=== PATIENT | male | born 1935 | race Caucasian/White ===

== ENCOUNTER 2022-09-23 16:17 | Inpatient (IN) ==
[2022-09-23] MEDS ORDERED: SODIUM CHLORIDE 0.9% 1,000 ML IV STA (17:13)
[2022-09-23 17:58] LABS: Basophils # 0.1 10*3/uL (0.0-0.2); Basophils % 0.8 % (0.0-0.8); Eosinophils # 0.1 10*3/uL (0.0-0.87); Hematocrit 23.2 VOL% (42.0-52.0); Hemoglobin 7.2 GM/DL (14.0-18.0); Immature Granulocytes % 0.3 %; Immature Granulocytes Absolute 0.02 #; Lymphocytes # 0.6 10*3/uL (1.4-4.0); Lymphocytes % 8.3 % (21.2-54.2); Mean Corpuscular Volume 98.7 FL (87-102); Mean Platelet Volume 10.9 FL (9.6-12.0); Monocytes # 0.6 10*3/uL (0.11-0.8); Monocytes % 8.5 % (1.7-12.7); Neutrophils % 80.1 % (38.7-73.9); Platelet Count 256 T/CUMM (130-400); Red Blood Count 2.35 MC/CUMM (3.8-5.5); Red Cell Distribution Width 13.9 % (9.3-17.3); White Blood Count 6.6 T/CUMM (4-12)
[2022-09-23 18:06] LABS: PT Patient Result 11.4 SECS (10.1-12.1)
[2022-09-23 18:18] LABS: Alanine Aminotransferase 71 U/L (16-61); Albumin 2.5 G/DL (3.4-5.0); Alkaline Phosphatase 100 U/L (45-117); Aspartate Amino Transferase 50 U/L (0-37); Bilirubin,Total < 0.39 MG/DL (0.20-1.00); Blood Urea Nitrogen 56 MG/DL (7-18); Calcium 8.9 MG/DL (8.5-10.1); Carbon Dioxide 26 MMOL/L (21-32); Chloride 103 MMOL/L (98-107); Osmolality,Calculated 315.7 MOS/KG (273-304); Potassium 3.8 MMOL/L (3.5-5.1); Sodium 138 MMOL/L (136-145); Total Protein 5.9 G/DL (6.4-8.2)
[2022-09-23 18:24] LABS: Glucose 552 MG/DL (74-106)
[2022-09-23] MEDS ORDERED: INSULIN REGULAR 100 UNIT/ML IV STA ×2 (18:28→19:38)
[2022-09-23 18:52] LABS: Bacteria,Urine Occasional /HPF (Few); Hyaline Casts,Urine 4 /LPF (0-3); Mucus,Urine Occasional /LPF (Occasional); RBC,Urine 1 /HPF (0-4); Urine Appearance Clear (Clear); Urine Color Yellow (Yellow)
[2022-09-23 18:53] LABS: Bilirubin,Urine Negative (Negative); Blood, Urine Negative (Negative); Glucose,Urine (UA) 500 mg/dL (Negative); Ketones,Urine Negative (Negative); Nitrite,Urine Negative (Negative); Protein,Urine Negative (Negative); Urine Urobilinogen 0.2 eU/dL (<2.0); Urine pH 5.5 (4.5-8.0)
[2022-09-23] MEDS ORDERED: ONDANSETRON 4 MG/2 ML VIAL IV PRN (19:32)
[2022-09-23] MEDS ORDERED: GLUCAGON 1 MG VIAL IM PRN ×2 (19:32)
[2022-09-23] MEDS ORDERED: DEXTROSE 10% 250 ML BAG IV PRN (19:32)
[2022-09-23] MEDS ORDERED: DEXTROSE 50% 25 GM/50 ML VIAL IV PRN (19:32)
[2022-09-23] MEDS ORDERED: hydrALAZINE 20 MG/1 ML VIAL IV PRN (19:32)
[2022-09-23] MEDS ORDERED: SODIUM CHLORIDE 0.9% 1,000 ML IV PRN (19:37)
[2022-09-23] MEDS ORDERED: cefTRIAXone 1,000 MG in SODIUM CHLORIDE 0.9% 100 ML IV SCH (20:00)
[2022-09-23 20:10] LABS: % Iron Saturation 12.3 % (18-50)
[2022-09-23] MEDS: SODIUM CHLORIDE 0.9% 1,000 ML IV SCH (20:32)
[2022-09-23] MEDS ORDERED: INSULIN GLARGINE 100 UNIT/ML SUBCUT ONE (21:00)
[2022-09-23] MEDS ORDERED: AZITHROMYCIN INJ 500 MG in SODIUM CHLORIDE 0.9% 250 ML IV SCH (21:00)
[2022-09-23] MEDS ORDERED: APIXABAN 2.5 MG TABLET PO SCH (21:00)
[2022-09-23 21:19] LABS: Hematocrit 22.1 VOL% (42.0-52.0); Hemoglobin 6.8 GM/DL (14.0-18.0)
[2022-09-23] MEDS: PANTOPRAZOLE 40 MG VIAL IV SCH (22:02)
[2022-09-23] MEDS: ASCORBIC ACID 500 MG TABLET PO SCH (22:30)
[2022-09-23] MEDS: INSULIN REGULAR 100 UNIT/ML SUBCUT SCH (23:23)
[2022-09-24 02:39] LABS: Basophils % 0.4 % (0.0-0.8); Eosinophils # 0.2 10*3/uL (0.0-0.87); Eosinophils % 3.2 % (0.00-10.9); Hematocrit 21.6 VOL% (42.0-52.0); Hemoglobin 6.7 GM/DL (14.0-18.0); Immature Granulocytes % 0.3 %; Immature Granulocytes Absolute 0.02 #; Lymphocytes # 0.7 10*3/uL (1.4-4.0); Lymphocytes % 10.2 % (21.2-54.2); Mean Corpuscular Volume 98.2 FL (87-102); Mean Platelet Volume 10.8 FL (9.6-12.0); Monocytes # 0.5 10*3/uL (0.11-0.8); Monocytes % 7.5 % (1.7-12.7); Neutrophils % 78.4 % (38.7-73.9); Platelet Count 236 T/CUMM (130-400); Red Cell Distribution Width 13.8 % (9.3-17.3); White Blood Count 7.2 T/CUMM (4-12)
[2022-09-24 03:10] LABS: Alanine Aminotransferase 62 U/L (16-61); Albumin 2.2 G/DL (3.4-5.0); Alkaline Phosphatase 87 U/L (45-117); Aspartate Amino Transferase 43 U/L (0-37); Bilirubin,Indirect 0.3 MG/DL (0.0-1.0); Bilirubin,Total < 0.39 MG/DL (0.20-1.00); Ferritin 237.8 ng/mL (26-388); Total Protein 5.3 G/DL (6.4-8.2)
[2022-09-24 03:21] LABS: Calcium 8.5 MG/DL (8.5-10.1); Potassium 3.5 MMOL/L (3.5-5.1); Risk Ratio 2.51; Thyroid Stimulating Hormone 0.975 uIU/ml (0.358-3.74); VLDL Cholesterol 11.6 MG/DL
[2022-09-24 07:33] LABS: Hemoglobin 7.7 GM/DL (14.0-18.0)
[2022-09-24] MEDS: PANTOPRAZOLE 40 MG VIAL IV SCH ×2 (09:28→22:19)
[2022-09-24] MEDS: ASCORBIC ACID 500 MG TABLET PO SCH ×2 (09:43→22:18)
[2022-09-24] MEDS: CHOLECALCIFEROL 1,000 UNIT TABLET PO SCH (09:43)
[2022-09-24] MEDS: ZINC GLUCONATE 50 MG TABLET PO SCH (09:43)
[2022-09-24] MEDS: INSULIN REGULAR 100 UNIT/ML SUBCUT SCH ×4 (09:45→22:19)
[2022-09-24] MEDS: SODIUM CHLORIDE 0.9% 1,000 ML IV SCH ×2 (13:47→22:19)
[2022-09-24] MEDS: MENTHOL/ZINC OXIDE OINT 71 GM JAR TOP SCH (22:19)
[2022-09-25 04:45] LABS: Basophils % 0.4 % (0.0-0.8); Eosinophils # 0.3 10*3/uL (0.0-0.87); Eosinophils % 3.6 % (0.00-10.9); Hematocrit 24.6 VOL% (42.0-52.0); Hemoglobin 7.6 GM/DL (14.0-18.0); Immature Granulocytes Absolute 0.07 #; Lymphocytes # 0.7 10*3/uL (1.4-4.0); Lymphocytes % 9.4 % (21.2-54.2); Mean Corpuscular HGB Conc 30.9 GM/DL (32-36); Mean Corpuscular Volume 94.3 FL (87-102); Mean Platelet Volume 10.5 FL (9.6-12.0); Monocytes # 0.5 10*3/uL (0.11-0.8); Monocytes % 7.3 % (1.7-12.7); Neutrophils % 78.3 % (38.7-73.9); Platelet Count 229 T/CUMM (130-400); Red Blood Count 2.61 MC/CUMM (3.8-5.5); Red Cell Distribution Width 18.5 % (9.3-17.3); White Blood Count 7.2 T/CUMM (4-12)
[2022-09-25 05:12] LABS: Alanine Aminotransferase 61 U/L (16-61); Albumin 2.1 G/DL (3.4-5.0); Alkaline Phosphatase 82 U/L (45-117); Aspartate Amino Transferase 45 U/L (0-37); Bilirubin,Total < 0.39 MG/DL (0.20-1.00); Blood Urea Nitrogen 49 MG/DL (7-18); Calcium 8.7 MG/DL (8.5-10.1); Carbon Dioxide 26 MMOL/L (21-32); Chloride 113 MMOL/L (98-107); Glucose 150 MG/DL (74-106); Osmolality,Calculated 305.6 MOS/KG (273-304); Potassium 3.6 MMOL/L (3.5-5.1); Sodium 146 MMOL/L (136-145); Total Protein 5.1 G/DL (6.4-8.2)
[2022-09-25] MEDS: INSULIN REGULAR 100 UNIT/ML SUBCUT SCH ×2 (07:17→13:01)
[2022-09-25] MEDS: PANTOPRAZOLE 40 MG VIAL IV SCH (09:31)
[2022-09-25] MEDS: ZINC GLUCONATE 50 MG TABLET PO SCH (09:44)
[2022-09-25] MEDS: CHOLECALCIFEROL 1,000 UNIT TABLET PO SCH (09:44)
[2022-09-25] MEDS: MENTHOL/ZINC OXIDE OINT 71 GM JAR TOP SCH (09:44)
[2022-09-25] MEDS: ASCORBIC ACID 500 MG TABLET PO SCH (09:44)
[2022-09-25 12:41] VITALS: BP 164/77
[2022-09-25] MEDS: SODIUM CHLORIDE 0.9% 1,000 ML IV SCH (14:23)
== END 2022-09-25 14:33 | disposition home or self-care (01) | DRG 682 ==
LOC: N.ED 16:17 → N.EDINP 19:32 → N.TELES 22:40 → N.TELEN 23:37
PROVIDERS: ADMIT Internal Medicine; ATTEND Internal Medicine